=== PATIENT | male | born 1945 | race Caucasian/White ===

== ENCOUNTER 2018-09-21 11:21 | Day surgery (SDC) | payer OTHER ==
--- NOTE | 2018-09-21 04:42 | History and Physical - Fer[facility] ---
DATE: 09/20/2018. CHIEF COMPLAINT/HISTORY OF CHIEF COMPLAINT: This patient presents with a history of an intractable lumbar radiculopathy. Due to the failure of all therapies, a spinal cord stimulator trial was conducted on 08/30/2018 with 75 to 85 percent pain control. Due to the failure of therapy and the success of the stimulation trial, the patient presents today for implantation of a permanent system. PAST MEDICAL HISTORY: Noncontributory. PAST SURGICAL HISTORY: To be provided. MEDICATIONS ON ADMISSION: To be provided. ALLERGIES: To be provided. SOCIAL HISTORY: To be provided. FAMILY HISTORY: To be provided. SYSTEMS REVIEW: The patient seems appropriate and in no acute distress. The remainder of the systems review shows degenerative arthritis PHYSICAL EXAMINATION: GENERAL: Height and weight not available. VITAL SIGNS: Not available. HEENT: Within normal limits. LUNGS: Clear. HEART: Rapid and regular. ABDOMEN: Nontender. MUSCULOSKELETAL: Examination of the musculoskeletal system shows diffuse tenderness throughout the lumbar spine. Range of motion does produce pain moving into both hips and legs. There are currently no motor or sensory abnormalities in the extremities. AMBULATION: No assistive device utilized. NEUROLOGIC: Cranial nerves are intact. IMPRESSION: LUMBAR RADICULOPATHY, ICD-10 CODE M54.16 AND M54.17. PLAN: Due to the failure of all therapies and the success of the stimulator trial, the patient presents today for implantation of a permanent system. The procedure will be considered outpatient; although an overnight stay will be evaluated. JOB NUMBER: [id number] cc: Dutch Huston
[~2018-09-21 11:21] MED LIST: ACETAMINOPHEN 1,000 MG/100 ML BTL IV ONE; CEFAZOLIN 2 Gram 2 GM/50 ML BAG IVPB ONE; FAMOTIDINE 20MG TABLET PO ONE; MECLIZINE 25 MG TABLET PO ONE; METOCLOPRAMIDE 10 MG TABLET PO ONE
[2018-09-21] MEDS ORDERED: LIDOCAINE 2% MDV (20MG/ML) 20ML VIAL IV ONE (11:22)
[2018-09-21] MEDS ORDERED: FENTANYL PF 100MCG/2ML VIAL IV ONE (11:22)
[2018-09-21] MEDS ORDERED: BUPIVACAINE 0.5% W/EPI MPF 30 ML VIAL IVP ONE (11:22)
[2018-09-21] MEDS ORDERED: PROPOFOL 10 MG/ML VIAL IV ONE (11:22)
[2018-09-21] MEDS ORDERED: MIDAZOLAM HCL 2MG/2ML VIAL IV ONE (11:22)
[2018-09-21] MEDS ORDERED: LIDOCAINE 1% W/EPI 1:200,000 MPF 30ML SQ ONE (11:22)
[2018-09-21 11:41] LABS: BLEEDING TIME 3.5 MINUTES (1.5-7.0)
[2018-09-21 11:54] LABS: INR 1.1; PARTIAL THROMBOPLASTIN TIME 29.4 SECONDS (24.5-39.1); PROTHROMBIN TIME (PATIENT) 10.7 SECONDS (9.5-12.1)
--- NOTE | 2018-09-23 10:03 | RADIOLOGY REPORT ---
EXAM: THORACOLUMBAR SPINE, SINGLE VIEW HISTORY: STATUS POST STIMULATOR IMPLANT. TECHNIQUE: A single frontal view of the thoracolumbar spine was obtained. Comparison: None. FINDINGS: Stimulator leads are seen in the projection of the T7-T9 vertebral bodies. The stimulator generator is partially seen over the left lower abdomen. Please see operative report for additional details. Incidentally noted calcific densities extend horizontally across the upper abdomen; nonspecific, could relate to underlying chronic pancreatitis. IMPRESSION: ABOVE. JOB NUMBER: [id number] [facility]
--- NOTE | 2018-09-24 12:09 | Operative Note - [facility] ---
DATE OF SURGERY: 09/21/2018. PREOPERATIVE DIAGNOSIS: LUMBAR RADICULOPATHY, ICD-10 CODE M54.16 AND M54.17. POSTOPERATIVE DIAGNOSIS: LUMBAR RADICULOPATHY, ICD-10 CODE M54.16 AND M54.17. OPERATION: 1. Fluoroscopically guided left epidural access at T11-12. Placement of spinal cord stimulator lead 1, [employer] Inf[employer]on 16 with 16 electrodes positioned left T7. 2. Fluoroscopically guided epidural access at left T12-L1. Placement of spinal cord stimulator lead 2, [employer] Infineon 16 with 16 electrodes positioned right T7. 3. Complex programming of lead 1 over 20 minutes followed by complex programming of lead 2 over 20 minutes. 4. Incision, subcutaneous dissection after needles removed, securing lead 1 and lead 2 to supraspinous fascia with a [employer] locking anchor. 5. Incision, subcutaneous dissection, and creation of subcutaneous pouch at left flank, the site picked by the patient for the generator, a [employer] programmable, rechargeable WaveWriter generator. 6. Tunneling between pouches. Placement of external portions of lead 1 and lead 2 into generator pouch, each lead interfaced to generator. 7. Closure of incisions using Stratafix suture; #2-0 for the fascia and #3-0 for the skin. Dermabond closure over each. SURGEON: Rodolfo Wiley D.O. ANESTHESIA: Local sedation. ANESTHESIA PROVIDER: Brett Hairston CRNA. INDICATION: This patient presents with a history of intractable lumbar radiculopathy. Due to the failure of therapies, a spinal cord stimulator trial was conducted with greater than 75 percent pain control. Due to the failure of other therapies and the success of the trial, the patient presents today for implantation of a permanent system. DESCRIPTION OF PROCEDURE: Intravenous line, vital sign monitoring, intravenous sedation. Prepped and draped with sterile technique. Under imaging with the patient prone, the epidural interspaces left of the midline at T11-12 and 12-1 were both identified, marked, and infiltrated. Two separate curved-access Epimed needles were placed with loss of resistance into the space in an atraumatic manner. No blood or cerebrospinal fluid was noted. At 11-12 spinal cord stimulator lead 1, a [employer] Infineon 16 with 16 electrodes, was positioned left of midline at T7. With the left epidural access at 12-1, spinal cord stimulator lead 2, a [employer] Infineon 16 with 16 electrodes was positioned right of T7. Complex programming of lead 1 over 20 minutes was followed by complex programming of lead 2 over 20 minutes. This resulted in complete patterns of stimulation across the back and into the legs. The patient indicated we were in all of the areas of the pain. He was then given the options to implant, continue to program, or remove. He opted to implant. The questions were repeated with the same response. The skin above and below both needles was infiltrated. An incision was made, and subcutaneous dissection was conducted to the supraspinous fascia. The needles were removed and then each lead was anchored to the supraspinous fascia with a [employer] locking anchor. Antibiotic irrigation and Bovie for hemostasis. At the left flank, the site picked by the patient for the generator, the skin was infiltrated. An incision was made and subcutaneous dissection was conducted to form a pouch of suitable size and depth for the generator, a [employer] programmable rechargeable WaveWriter generator. A tunneling tool was used to carry the leads into the generator pouch, and then each lead was interfaced to the generator. The generator was placed into the pouch and the leads were placed into their own pouch. Both incisions were then closed using Stratafix suture; #2-0 for the fascia and #3-0 for the skin. Dermabond closure over each. He was then transported to the recovery room stable with no side effects from the procedure or the sedation. When fully awake and alert, complex programming was then performed over 20 minutes, re-establishing stimulation of pain control to all of the appropriate areas. He was instructed on use of the system and was provided with information on error messaging. He was then prepared for discharge. DISCHARGE INSTRUCTIONS: 1. The sites are to remain clean and dry. No showering or bathing in any way that would disrupt dressings. If this happens he is to contact the clinic. 2. Standard medications to be resumed including the antibiotic Levaquin 500 mg once a day for 14 days. 3. The office is to contact the patient in the next 24 to 48 hours to set up a time in the next 7 to 10 days to evaluate the sites. Until then he is to keep his activities low and limit bend, lift, push, and pull. He should not remove the dressing. He should not sit in water, although he may shower. Should the dressing come loose, he should contact the clinic. 4. All other instructions were provided including numbers to contact with problems. He will be discharged. JOB NUMBER: [id number] cc: Dutch Blake
== END 2018-09-21 15:30 | disposition home or self-care (01) ==
LOC: SUR 11:21
PROVIDERS: ATTEND Pain Medicine Interventional Pain Medicine
DX: M54.16 Radiculopathy, lumbar region (principal); M54.17 Radiculopathy, lumbosacral region; I10 Essential (primary) hypertension; E78.00 Pure hypercholesterolemia, unspecified; K21.9 Gastro-esophageal reflux disease without esophagitis; Z95.5 Presence of coronary angioplasty implant and graft; F17.210 Nicotine dependence, cigarettes, uncomplicated
CPT/HCPCS: 63650; 63685; 01936; 95972; 85730; 85610; 85002; 72020; J3010; J0690; C1820; C1883